=== PATIENT | male | born 1970 | race Caucasian/White ===

== ENCOUNTER 2017-01-15 02:06 | Inpatient (IN) | payer MEDICAID, OTHER ==
[~2017-01-15] VITALS: Ht 182.9 cm; Wt 113.0 kg
[~2017-01-15 02:06] MED LIST: OXYC-302 PO; POLY17PO5 PO
[2017-01-15] MEDS ORDERED: FAMOTIDINE 20 MG/2 ML ONE (03:40)
[2017-01-15] MEDS ORDERED: HYDROmorphone 1 MG/ML, 1ML ONE ×5 (03:40→17:17)
[2017-01-15] MEDS ORDERED: ONDANSETRON 2MG/ML, 2ML ONE (03:40)
[2017-01-15] MEDS: HYDROmorphone 1 MG/ML, 1ML IVPush PRN ×2 (03:45→05:28)
[2017-01-15] MEDS ORDERED: BENA1TAB11 PO (03:52)
[2017-01-15] MEDS ORDERED: AMLO10TA2 PO (03:52)
[2017-01-15] MEDS ORDERED: SODIUM CHLORIDE 0.9% 1,000ML IVBOLUS ONE (04:00)
[2017-01-15] MEDS ORDERED: FAMOTIDINE 20 MG/2 ML IVP ONE (04:00)
[2017-01-15] MEDS ORDERED: ONDANSETRON 2MG/ML, 2ML IVPush ONE (04:00)
[2017-01-15] MEDS ORDERED: SODIUM CHLORIDE FLUSH 10ML SYR IVF ONE (04:00)
[2017-01-15 04:13] LABS: ASPARTATE AMINO TRANSFERASE 21 U/L (15-37); BLOOD UREA NITROGEN 18 mg/dL (7-18)
[2017-01-15] MEDS ORDERED: OMNIPAQUE 350 MG/ML, 100ML BOTTLE ONE (04:36)
[2017-01-15] MEDS ORDERED: D5%-0.45NACL+KCL 20MEQ 1,000 ML IV SCH (05:00)
[2017-01-15] MEDS ORDERED: LABETALOL 5MG/ML, 20ML IV PRN (06:00)
[2017-01-15] MEDS: D5%-0.45NACL+KCL 20MEQ 1,000 ML IV SCH ×3 (08:00→23:01)
[2017-01-15 08:19] VITALS: BP 141/92
[2017-01-15] MEDS: HYDROmorphone 2 MG/ML, 1ML IV PRN ×4 (08:49→21:15)
[2017-01-15] MEDS: AMLODIPINE 5 MG TABLET PO SCH (08:59)
[2017-01-15] MEDS: BENAZEPRIL 20 MG TABLET PO SCH (08:59)
[2017-01-15] MEDS: HYDROCHLOROTHIAZIDE 25 MG TABLET PO SCH (08:59)
[2017-01-15] MEDS ORDERED: PHENOL THROAT SPRAY BOTTLE MM PRN (11:00)
[2017-01-15] MEDS: ONDANSETRON 2MG/ML, 2ML IVP PRN ×2 (11:09→13:13)
[2017-01-15 12:35] VITALS: BP 130/86
[2017-01-15 12:35] LABS: HEMOGLOBIN 17.2 g/dL (13.7-18.0)
[2017-01-15 12:46] LABS: BLOOD UREA NITROGEN 15 mg/dL (7-18)
[2017-01-15 20:43] VITALS: BP 137/81
[2017-01-16] MEDS: HYDROmorphone 2 MG/ML, 1ML IV PRN ×5 (00:50→18:47)
[2017-01-16 04:49] VITALS: BP 150/95
[2017-01-16] MEDS: D5%-0.45NACL+KCL 20MEQ 1,000 ML IV SCH ×3 (05:39→20:00)
[2017-01-16 06:02] LABS: BLOOD UREA NITROGEN 12 mg/dL (7-18)
[2017-01-16 06:35] VITALS: BP 137/97
[2017-01-16] MEDS: BENAZEPRIL 20 MG TABLET PO SCH ×2 (09:00→10:51)
[2017-01-16] MEDS ORDERED: SODIUM CHLORIDE NASAL SPRAY 45ML BOTTLE NAS PRN (09:30)
[2017-01-16] MEDS: OXYMETAZOLINE NASAL SPRAY 0.05%, 15ML NAS SCH ×2 (09:30→21:00)
[2017-01-16] MEDS: HYDROCHLOROTHIAZIDE 25 MG TABLET PO SCH (10:49)
[2017-01-16] MEDS: AMLODIPINE 5 MG TABLET PO SCH (10:49)
[2017-01-16 13:11] VITALS: BP 142/88
[2017-01-16 19:35] VITALS: BP 137/97
[2017-01-17 01:45] VITALS: BP 141/90
[2017-01-17] MEDS: D5%-0.45NACL+KCL 20MEQ 1,000 ML IV SCH ×4 (01:54→22:40)
[2017-01-17 06:09] LABS: BLOOD UREA NITROGEN 7 mg/dL (7-18)
[2017-01-17 07:03] VITALS: BP 133/94
[2017-01-17] MEDS: HYDROCHLOROTHIAZIDE 25 MG TABLET PO SCH (08:16)
[2017-01-17] MEDS: AMLODIPINE 5 MG TABLET PO SCH (08:16)
[2017-01-17] MEDS: OXYMETAZOLINE NASAL SPRAY 0.05%, 15ML NAS SCH ×2 (08:17→21:00)
[2017-01-17] MEDS: BENAZEPRIL 20 MG TABLET PO SCH (08:17)
[2017-01-17 12:30] VITALS: BP 142/86
[2017-01-17 19:20] VITALS: BP 138/90
[2017-01-18 02:58] VITALS: BP 147/91
[2017-01-18] MEDS: D5%-0.45NACL+KCL 20MEQ 1,000 ML IV SCH (04:08)
[2017-01-18 07:55] VITALS: BP 133/93
[2017-01-18] MEDS: BENAZEPRIL 20 MG TABLET PO SCH (09:00)
[2017-01-18] MEDS: OXYMETAZOLINE NASAL SPRAY 0.05%, 15ML NAS SCH (09:00)
[2017-01-18] MEDS: HYDROCHLOROTHIAZIDE 25 MG TABLET PO SCH (09:33)
[2017-01-18] MEDS: AMLODIPINE 5 MG TABLET PO SCH (09:34)
[2017-01-18 13:23] VITALS: BP 134/92
== END 2017-01-18 15:58 | disposition home or self-care (01) | DRG 390 ==
LOC: ED 05:12 → EDIP 05:13 → ED 05:26 → 4NOR 05:57 → DCLOUNGE 01-18 15:33
PROVIDERS: ADMIT Family Medicine; ATTEND Family Medicine
PROC: 0T9B70Z Drainage of Bladder with Drainage Device, Via Natural or Artificial Opening (ICD-10-PCS; principal; 2017-01-15)
PROC: 0D9670Z Drainage of Stomach with Drainage Device, Via Natural or Artificial Opening (ICD-10-PCS; 2017-01-15)
DX: K56.5 Intestinal adhesions [bands] with obstruction (postinfection) (principal); I10 Essential (primary) hypertension; R73.9 Hyperglycemia, unspecified; K21.9 Gastro-esophageal reflux disease without esophagitis; Z72.0 Tobacco use; Z88.5 Allergy status to narcotic agent; Z90.49 Acquired absence of other specified parts of digestive tract; Z79.899 Other long term (current) drug therapy; Z83.3 Family history of diabetes mellitus
CPT/HCPCS: 36415; 74000; 74177; 80048; 80053; 81003; 83036; 83690; 85025; 85610; 96361; 96374; 96375; 96376; J1170; J2405; Q9967; J3480; J7030; S0028

== ENCOUNTER 2017-10-05 19:34 | Emergency (ER) | payer MEDICAID ==
[~2017-10-05] VITALS: Ht 182.9 cm; Wt 117.4 kg
[~2017-10-05 19:34] MED LIST changes: +AMLO10TA2 PO; +BENA1TAB11 PO
[2017-10-05 19:37] VITALS: BP 144/79
[2017-10-05] MEDS ORDERED: OXYcodone/APAP 5/325MG TABLET PO ONE (20:00)
[2017-10-05] MEDS ORDERED: KETOROLAC 60 MG/2 ML IM ONE (20:00)
[2017-10-05] MEDS ORDERED: KETOROLAC 30 MG/1 ML ONE (20:02)
[2017-10-05] MEDS ORDERED: OXYcodone/APAP 5/325MG TABLET ONE (20:02)
[2017-10-05 20:04] LABS: HEMATOCRIT 48.5 % (39.2-51.8); HEMOGLOBIN 16.7 g/dL (13.7-18.0)
== END 2017-10-05 21:34 | disposition home or self-care (01) ==
LOC: ED 21:28
DX: M13.171 Monoarthritis, not elsewhere classified, right ankle and foot (principal); M10.471 Other secondary gout, right ankle and foot; I10 Essential (primary) hypertension; Z88.5 Allergy status to narcotic agent; Z90.49 Acquired absence of other specified parts of digestive tract
CPT/HCPCS: 36415; 73610; 73630; 84550; 85025; 85651; 93971; 96372; 99285; J1885

== ENCOUNTER 2020-04-21 21:01 | Inpatient (IN) | payer MEDICAID ==
[~2020-04-21] VITALS: Ht 182.9 cm; Wt 132.0 kg
[~2020-04-21 21:01] MED LIST changes: -AMLO10TA2 PO; +AMLO10TA8 PO
[2020-04-21 21:42] LABS: BASOPHILS # (AUTO) 0.04 x10^3/uL (0-0.1); BASOPHILS % (AUTO) 0 % (0-1); EOSINOPHILS % (AUTO) 0 % (1-7); LYMPHOCYTES # (AUTO) 1.33 x10^3/uL (1-3.4); LYMPHOCYTES % (AUTO) 9 % (22-44); MD NO; MEAN CORPUSCULAR HEMOGLOBIN 31.7 pg (27.5-34.5); MEAN CORPUSCULAR HGB CONC 33.1 g/dL (33.2-36.2); MEAN CORPUSCULAR VOLUME 95.7 fL (81-97); MEAN PLATELET VOLUME 7.5 fL (7.4-10.4); MONOCYTES # (AUTO) 0.91 x10^3/uL (0.2-0.8); MONOCYTES % (AUTO) 6 % (2-9); NEUTROPHILS # (AUTO) 12.53 x10^3/uL (1.8-6.8); NEUTROPHILS % (AUTO) 85 % (42-75); PLATELET COUNT 257 x10^3/uL (130-400); RED BLOOD COUNT 5.94 x10^6/uL (4.38-5.82); RED CELL DISTRIBUTION WIDTH 14.9 % (9.4-14.8)
[2020-04-21 21:50] LABS: ALANINE AMINOTRANSFERASE 30 U/L (12-78); ALBUMIN 4.2 g/dL (3.4-5.0); ANION GAP 6 mmol/L (5-15); CALCIUM 9.5 mg/dL (8.5-10.1); CHLORIDE 103 mmol/L (98-107)
[2020-04-21 21:53] LABS: ALKALINE PHOSPHATASE 68 U/L (45-117); BILIRUBIN,TOTAL 0.6 mg/dL (0.2-1.0); CREATININE 1.39 mg/dL (0.7-1.3); TOTAL PROTEIN 9.2 g/dL (6.4-8.2)
[2020-04-21] MEDS ORDERED: HYDROmorphone 1 MG/ML, 1ML INJ ONE (22:17)
[2020-04-21] MEDS ORDERED: ONDANSETRON 2MG/ML, 2ML ONE (22:17)
[2020-04-21] MEDS ORDERED: HYDROmorphone 2 MG/ML, 1ML IVPush PRN (22:30)
[2020-04-21] MEDS ORDERED: ONDANSETRON 2MG/ML, 2ML IVPush ONE (22:30)
--- NOTE | 2020-04-21 22:30 | NUR ---
PT TO IMAGING.
[2020-04-21] MEDS ORDERED: OMNIPAQUE 350 MG/ML, 150 ML BOTTLE ONE (22:42)
--- NOTE | 2020-04-21 22:47 | NUR ---
SUMMARY NOTE: THIS PT HAS A HX OF BOWEL OBSTRUCTION, APPROX 4 YEARS AGO. HE'S HAD A HERNIA REPAIR. PT STATES HIS LAST BM WAS TODAY. PT MEDICATED TO DEC, AND WENT TO CT.
--- NOTE | 2020-04-21 23:07 | NUR ---
PT SITTING IN BED, PROVIDED WITH BLANKET, STATES RELEIF FROM PAIN MEDS. CHART UP FOR RECHECK, PT UPDATED ON POC.
[2020-04-21 23:12] LABS: MICROSCOPIC INDICATED
[2020-04-21] MEDS ORDERED: LOSA25TA25 PO (23:19)
--- NOTE | 2020-04-21 23:19 | NUR ---
MED REC COMPLETE TO THE BEST OF PT'S ABILITY. PT UNSURE IF HE TAKES ALL THE LISTED BP MEDS.
[2020-04-22] MEDS ORDERED: SODIUM CHLORIDE 0.9% 1,000ML IVBOLUS ONE
[2020-04-22] MEDS ORDERED: LIDOCAINE 4% TOPICAL SOLUTION 50 ML TP ONE
--- NOTE | 2020-04-22 00:53 | NUR ---
REPORT GIVEN TO DEEPALI, TARAS RN.
--- NOTE | 2020-04-22 00:55 | NUR ---
LATE ENTRY FOR 0030: NG TUBE IN PLACE. PT TOLERATED WELL. TAMMI RN AT BEDSIDE TO WITNESS AND CONFIRM PLACEMENT. PT PREMEDICATED WITH DOSE 2 OF 2 OF 0.5MG OF DILAUDID FROM SAME VIAL THE FIRST DOSE WAS PULLED UP FROM.
[2020-04-22] MEDS ORDERED: HYDROmorphone 1 MG/ML, 1ML INJ IV ONE (01:00)
[2020-04-22] MEDS ORDERED: LABETALOL 5MG/ML, 20ML IVPush PRN (01:00)
[2020-04-22] MEDS ORDERED: ONDANSETRON 2MG/ML, 2ML IVPush PRN (01:00)
[2020-04-22] MEDS ORDERED: ENALAPRILAT 1.25 MG/ML, 2ML IVPush PRN (01:00)
[2020-04-22] MEDS ORDERED: hydrALAzine 20 MG/ML, 1ML IVPush PRN (01:00)
[2020-04-22 01:37] VITALS: BP 134/84
[2020-04-22 01:43] VITALS: BP 134/84
[2020-04-22] MEDS: LACTATED RINGERS 1,000 ML IV SCH ×5 (02:19→21:42)
[2020-04-22] MEDS: ENOXAPARIN 40 MG/0.4 ML SQ SCH (02:19)
[2020-04-22] MEDS: HYDROmorphone 2 MG/ML, 1ML IVPush PRN ×4 (03:58→15:40)
[2020-04-22 07:35] VITALS: BP 152/94
[2020-04-22] MEDS: PANTOPRAZOLE 40 MG IV IVPush SCH (08:29)
[2020-04-22 08:50] LABS: BASOPHILS # (AUTO) 0.03 x10^3/uL (0-0.1); BASOPHILS % (AUTO) 0 % (0-1); EOSINOPHILS # (AUTO) 0.02 x10^3/uL (0-0.4); EOSINOPHILS % (AUTO) 0 % (1-7); LYMPHOCYTES # (AUTO) 1.29 x10^3/uL (1-3.4); LYMPHOCYTES % (AUTO) 12 % (22-44); MD NO; MEAN CORPUSCULAR HEMOGLOBIN 32.4 pg (27.5-34.5); MEAN CORPUSCULAR HGB CONC 33.6 g/dL (33.2-36.2); MEAN CORPUSCULAR VOLUME 96.3 fL (81-97); MEAN PLATELET VOLUME 7.4 fL (7.4-10.4); MONOCYTES # (AUTO) 0.89 x10^3/uL (0.2-0.8); MONOCYTES % (AUTO) 9 % (2-9); NEUTROPHILS # (AUTO) 8.25 x10^3/uL (1.8-6.8); NEUTROPHILS % (AUTO) 79 % (42-75); PLATELET COUNT 195 x10^3/uL (130-400); RED BLOOD COUNT 5.37 x10^6/uL (4.38-5.82); RED CELL DISTRIBUTION WIDTH 14.4 % (9.4-14.8)
[2020-04-22 08:55] LABS: ALBUMIN 3.4 g/dL (3.4-5.0); ANION GAP 5 mmol/L (5-15); CALCIUM 8.6 mg/dL (8.5-10.1); CHLORIDE 104 mmol/L (98-107)
[2020-04-22 09:01] LABS: ALANINE AMINOTRANSFERASE 26 U/L (12-78); ALKALINE PHOSPHATASE 52 U/L (45-117); BILIRUBIN,TOTAL 0.9 mg/dL (0.2-1.0); CREATININE 0.91 mg/dL (0.7-1.3); TOTAL PROTEIN 7.3 g/dL (6.4-8.2)
[2020-04-22] MEDS ORDERED: LOSARTAN 25MG TABLET NG SCH (11:30)
[2020-04-22] MEDS ORDERED: HYDROCHLOROTHIAZIDE 25 MG TABLET NG SCH (11:30)
[2020-04-22] MEDS: AMLODIPINE 10 MG TAB PO SCH (11:50)
[2020-04-22 14:25] VITALS: BP 145/96
[2020-04-22 20:00] VITALS: BP 131/83
[2020-04-23 02:25] VITALS: BP 148/87
[2020-04-23] MEDS: LACTATED RINGERS 1,000 ML IV SCH ×2 (02:50→08:00)
[2020-04-23] MEDS: ENOXAPARIN 40 MG/0.4 ML SQ SCH (03:56)
[2020-04-23 06:18] LABS: ALBUMIN 3.3 g/dL (3.4-5.0); ANION GAP 6 mmol/L (5-15); CALCIUM 8.6 mg/dL (8.5-10.1); CHLORIDE 103 mmol/L (98-107)
[2020-04-23 06:25] LABS: BASOPHILS # (AUTO) 0.02 x10^3/uL (0-0.1); BASOPHILS % (AUTO) 0 % (0-1); EOSINOPHILS # (AUTO) 0.07 x10^3/uL (0-0.4); EOSINOPHILS % (AUTO) 1 % (1-7); LYMPHOCYTES # (AUTO) 1.14 x10^3/uL (1-3.4); LYMPHOCYTES % (AUTO) 14 % (22-44); MD NO; MEAN CORPUSCULAR HEMOGLOBIN 31.9 pg (27.5-34.5); MEAN CORPUSCULAR VOLUME 96.7 fL (81-97); MEAN PLATELET VOLUME 7.8 fL (7.4-10.4); MONOCYTES # (AUTO) 0.63 x10^3/uL (0.2-0.8); MONOCYTES % (AUTO) 8 % (2-9); NEUTROPHILS # (AUTO) 6.43 x10^3/uL (1.8-6.8); NEUTROPHILS % (AUTO) 78 % (42-75); PLATELET COUNT 183 x10^3/uL (130-400); RED BLOOD COUNT 5.25 x10^6/uL (4.38-5.82); RED CELL DISTRIBUTION WIDTH 14.3 % (9.4-14.8)
[2020-04-23 06:26] LABS: ALANINE AMINOTRANSFERASE 26 U/L (12-78); ALKALINE PHOSPHATASE 51 U/L (45-117); BILIRUBIN,TOTAL 0.9 mg/dL (0.2-1.0); CREATININE 0.74 mg/dL (0.7-1.3); TOTAL PROTEIN 7.2 g/dL (6.4-8.2)
[2020-04-23] MEDS: PANTOPRAZOLE 40 MG IV IVPush SCH (08:18)
[2020-04-23] MEDS: AMLODIPINE 10 MG TAB PO SCH (08:19)
[2020-04-23 08:32] VITALS: BP 148/85
[2020-04-23] MEDS ORDERED: LOSARTAN 25MG TABLET PO SCH (09:00)
[2020-04-23] MEDS ORDERED: HYDROCHLOROTHIAZIDE 25 MG TABLET PO SCH (09:00)
== END 2020-04-23 13:00 | disposition home or self-care (01) | DRG 683 ==
LOC: ED 23:01 → EDIP 23:46 → 3N 04-22 01:17 → DCLOUNGE 04-23 12:53
PROVIDERS: ADMIT Hospitalist; ATTEND Hospitalist
DX: N17.9 Acute kidney failure, unspecified (principal); K56.600 Partial intestinal obstruction, unspecified as to cause; D72.829 Elevated white blood cell count, unspecified; E66.01 Morbid (severe) obesity due to excess calories; I10 Essential (primary) hypertension; K21.9 Gastro-esophageal reflux disease without esophagitis; Z90.49 Acquired absence of other specified parts of digestive tract; Z68.39 Body mass index [BMI] 39.0-39.9, adult
CPT/HCPCS: 36415; 74021; 74177; 80053; 81001; 83690; 85025; 96374; 96375; 96376; 99285; G0378; J1170; J1650; J2405; Q9967; C9113; J7030; J7120

== ENCOUNTER 2020-06-08 07:31 | Inpatient (IN) | payer MEDICAID ==
[~2020-06-08] VITALS: Ht 182.9 cm; Wt 126.7 kg
[~2020-06-08 07:31] MED LIST changes: +LOSA25TA25 PO
[2020-06-08] MEDS ORDERED: DILTIAZEM 5 MG/ML, 5ML IV ONE (08:00)
[2020-06-08] MEDS ORDERED: SODIUM CHLORIDE FLUSH 10ML SYR IVF ONE (08:00)
[2020-06-08] MEDS ORDERED: DILTIAZEM 5 MG/ML, 5ML ONE (08:11)
[2020-06-08 08:18] LABS: BASOPHILS # (AUTO) 0.02 x10^3/uL (0-0.1); BASOPHILS % (AUTO) 0 % (0-1); EOSINOPHILS # (AUTO) 0.04 x10^3/uL (0-0.4); EOSINOPHILS % (AUTO) 1 % (1-7); LYMPHOCYTES % (AUTO) 20 % (22-44); MD NO; MEAN CORPUSCULAR HEMOGLOBIN 31.7 pg (27.5-34.5); MEAN CORPUSCULAR HGB CONC 32.4 g/dL (33.2-36.2); MEAN PLATELET VOLUME 7.3 fL (7.4-10.4); MONOCYTES # (AUTO) 0.64 x10^3/uL (0.2-0.8); MONOCYTES % (AUTO) 8 % (2-9); NEUTROPHILS % (AUTO) 71 % (42-75); PLATELET COUNT 218 x10^3/uL (130-400); RED CELL DISTRIBUTION WIDTH 15.2 % (9.4-14.8)
[2020-06-08 08:30] LABS: ANION GAP 9 mmol/L (5-15); CHLORIDE 103 mmol/L (98-107)
[2020-06-08 08:35] LABS: FREE T4 (FREE THYROXINE) 1.52 ng/dL (0.76-1.46); TROPONIN I < 0.015 ng/mL (0.000-0.045)
[2020-06-08] MEDS: DILTIAZEM 125 MG in SODIUM CHLORIDE 0.9% 100 ML IV SCH ×2 (09:03→19:30)
--- NOTE | 2020-06-08 09:04 | NUR ---
PT UPRIGHT ON GURNEY AWAKE & COMFORTABLE, RESPONDS APPROP TO STAFF, NAD, COMFORT MEASURES PROVIDED, AT BS, CALL LIGHT WITHIN REACH.
[2020-06-08] MEDS ORDERED: METOPROLOL 1 MG/ML, 5ML IVPush ONE (09:30)
[2020-06-08] MEDS ORDERED: ENOXAPARIN 120MG/0.8ML SQ ONE (09:30)
[2020-06-08] MEDS ORDERED: METOPROLOL 1 MG/ML, 5ML ONE (09:36)
--- NOTE | 2020-06-08 09:52 | NUR ---
ERP notified of pt status post medication administration. No orders at this time. Pt sts no complaint at this time.
[2020-06-08] MEDS ORDERED: ATEN1TAB3 PO (10:06)
[2020-06-08] MEDS ORDERED: SODIUM CHLORIDE FLUSH 10ML SYR IVF PRN (10:30)
--- NOTE | 2020-06-08 11:07 | NUR ---
Pt resting in [facility], significant other bedside, no needs expressed at this time. Will continue to monitor.
--- NOTE | 2020-06-08 11:58 | NUR ---
Pt to be admitted to [facility], room 508-02. Report called to Moira MOON.
[2020-06-08 12:42] VITALS: BP 132/98
[2020-06-08] MEDS ORDERED: DOCUSATE 100 MG CAPSULE PO PRN (13:00)
[2020-06-08] MEDS ORDERED: POLYETHYLENE GLYCOL 17 GM PACKET PO PRN (13:00)
[2020-06-08] MEDS ORDERED: IBUPROFEN 600 MG TABLET PO PRN (13:00)
[2020-06-08] MEDS ORDERED: BISACODYL 10 MG SUPP PR PRN (13:00)
[2020-06-08] MEDS ORDERED: LABETALOL 5MG/ML, 20ML IVPush PRN (13:00)
[2020-06-08] MEDS ORDERED: ACETAMINOPHEN 325 MG TABLET PO PRN (13:00)
[2020-06-08] MEDS ORDERED: hydrALAzine 20 MG/ML, 1ML IVPush PRN (13:00)
[2020-06-08] MEDS: METOPROLOL SUCCINATE 50 MG TAB.ER.24H PO SCH (14:10)
[2020-06-08 18:45] VITALS: BP 110/77
[2020-06-08] MEDS: APIXABAN 5 MG TABLET PO SCH (21:04)
[2020-06-09] VITALS: BP 112/80
[2020-06-09] MEDS: METOPROLOL SUCCINATE 50 MG TAB.ER.24H PO SCH (06:13)
[2020-06-09] MEDS: DILTIAZEM 125 MG in SODIUM CHLORIDE 0.9% 100 ML IV SCH ×2 (06:14→20:52)
[2020-06-09 07:45] VITALS: BP 128/84
[2020-06-09] MEDS: APIXABAN 5 MG TABLET PO SCH ×2 (08:26→20:56)
[2020-06-09] MEDS: CHLORTHALIDONE 25 MG TABLET PO SCH (08:27)
[2020-06-09] MEDS: LOSARTAN 25MG TABLET PO SCH (08:27)
[2020-06-09] MEDS ORDERED: POTASSIUM CHLORIDE 20 MEQ TAB.ER.PRT PO ONE (09:00)
[2020-06-09] MEDS ORDERED: AMLODIPINE 10 MG TAB PO SCH (09:00)
[2020-06-09] MEDS ORDERED: METOPROLOL SUCCINATE 25 MG TAB.ER.24H PO SCH (09:00)
[2020-06-09] MEDS ORDERED: DIGOXIN 0.25 MG/ML, 2ML IVPush ONE (13:30)
[2020-06-09 13:36] VITALS: BP 125/83
[2020-06-09] MEDS ORDERED: METOPROLOL SUCCINATE 25 MG TAB.ER.24H PO ONE (15:30)
[2020-06-09] MEDS ORDERED: DIGOXIN 0.25 MG/ML, 2ML IVPush SCH (17:00)
[2020-06-09] MEDS: DIGOXIN 0.25 MG/ML, 2ML IVPush SCH ×2 (17:34→22:53)
[2020-06-09 21:32] VITALS: BP 110/75
[2020-06-10 02:50] VITALS: BP 121/82
[2020-06-10] MEDS ORDERED: METOPROLOL SUCCINATE 50 MG TAB.ER.24H PO SCH ×2 (06:00)
[2020-06-10] MEDS ORDERED: SODIUM CHLORIDE 0.9% 1,000 ML IV SCH (06:00)
[2020-06-10] MEDS ORDERED: POTASSIUM CHLORIDE 20 MEQ TAB.ER.PRT PO ONE (07:30)
[2020-06-10] MEDS: DILTIAZEM 125 MG in SODIUM CHLORIDE 0.9% 100 ML IV SCH (08:00)
[2020-06-10 08:43] VITALS: BP 124/85
[2020-06-10] MEDS: LOSARTAN 25MG TABLET PO SCH (09:00)
[2020-06-10] MEDS: CHLORTHALIDONE 25 MG TABLET PO SCH (09:01)
[2020-06-10] MEDS: APIXABAN 5 MG TABLET PO SCH (09:01)
[2020-06-10] MEDS ORDERED: PROPOFOL 10 MG/ML, 20ML ONE ×2 (10:01)
[2020-06-10] MEDS ORDERED: CHLO25TA PO (11:07)
[2020-06-10] MEDS ORDERED: METO-95 PO (11:07)
[2020-06-10] MEDS ORDERED: APIX5TAB PO (11:07)
[2020-06-11] MEDS ORDERED: METOPROLOL SUCCINATE 100 MG TAB.ER.24H PO SCH (06:00)
== END 2020-06-10 13:04 | disposition home or self-care (01) | DRG 309 ==
LOC: ED 08:23 → EDIP 10:22 → 5SO 12:29 → DCLOUNGE 06-10 12:53
PROVIDERS: ADMIT Family Medicine; ATTEND Family Medicine
PROC: B24BZZ4 Ultrasonography of Heart with Aorta, Transesophageal (ICD-10-PCS; 2020-06-10)
PROC: 5A2204Z Restoration of Cardiac Rhythm, Single (ICD-10-PCS; principal; 2020-06-10 07:30)
DX: I48.19 Other persistent atrial fibrillation (principal); D68.69 Other thrombophilia; E66.9 Obesity, unspecified; E87.6 Hypokalemia; I10 Essential (primary) hypertension; F17.200 Nicotine dependence, unspecified, uncomplicated; I42.9 Cardiomyopathy, unspecified; G47.33 Obstructive sleep apnea (adult) (pediatric); M19.90 Unspecified osteoarthritis, unspecified site; Z03.818 Encounter for observation for suspected exposure to other biological agents ruled out; Z82.49 Family history of ischemic heart disease and other diseases of the circulatory system; Z83.3 Family history of diabetes mellitus; Z68.37 Body mass index [BMI] 37.0-37.9, adult; Z79.01 Long term (current) use of anticoagulants; Z88.5 Allergy status to narcotic agent; Z72.89 Other problems related to lifestyle
CPT/HCPCS: 36415; 71045; 80048; 82040; 83735; 83880; 84439; 84443; 84484; 85025; 87635; 92960; 93005; 93306; 93312; 93321; 93325; G0378; J1650; J2704; J1160

== ENCOUNTER 2020-11-03 12:18 | Outpatient (CLI) | payer MEDICAID ==
[~2020-11-03 12:18] MED LIST changes: +AMLO-211 PO; -AMLO10TA8 PO; +APIX5TAB PO; +ATEN1TAB3 PO; +CHLO25TA PO; +METO-95 PO
== END 2020-11-03 23:59 | disposition home or self-care (01) ==
LOC: CVU 12:18
PROVIDERS: ATTEND Internal Medicine Cardiovascular Disease
DX: I11.9 Hypertensive heart disease without heart failure (principal); I42.9 Cardiomyopathy, unspecified
CPT/HCPCS: 93306

== ENCOUNTER 2020-11-22 06:04 | Day surgery (SDC) | payer MEDICAID ==
[~2020-11-22] VITALS: Ht 182.9 cm; Wt 130.4 kg
[~2020-11-22 06:04] MED LIST changes: -OXYC-302 PO; +OXYC1TAB14 PO
[2020-11-22] MEDS ORDERED: METO-95 PO (06:34)
[2020-11-22] MEDS ORDERED: LOSA1TAB22 PO (06:34)
[2020-11-22] MEDS ORDERED: AMLO-150 PO (06:34)
[2020-11-22] MEDS ORDERED: Atenolol PO (06:35)
[2020-11-22 06:53] VITALS: BP 93/72
[2020-11-22 07:11] LABS: ANION GAP 8 mmol/L (5-15); CALCIUM 8.8 mg/dL (8.5-10.1); CHLORIDE 104 mmol/L (98-107); CREATININE 1.05 mg/dL (0.7-1.3)
[2020-11-22] MEDS ORDERED: POTA20TA91 PO (07:50)
[2020-11-22] MEDS ORDERED: FLEC100T PO (07:50)
[2020-11-22] MEDS ORDERED: PROPOFOL 10 MG/ML, 20ML ONE (08:01)
== END 2020-11-22 09:13 | disposition home or self-care (01) ==
LOC: CACL 06:04
PROVIDERS: ATTEND Internal Medicine Cardiovascular Disease
DX: I48.0 Paroxysmal atrial fibrillation (principal); I10 Essential (primary) hypertension; I42.9 Cardiomyopathy, unspecified; G47.39 Other sleep apnea; F17.220 Nicotine dependence, chewing tobacco, uncomplicated; Z79.01 Long term (current) use of anticoagulants; Z79.899 Other long term (current) drug therapy; Z88.8 Allergy status to other drugs, medicaments and biological substances; Z98.890 Other specified postprocedural states; Z72.89 Other problems related to lifestyle; Z82.49 Family history of ischemic heart disease and other diseases of the circulatory system
CPT/HCPCS: 36415; 80048; 92960; 93005; J2704

== ENCOUNTER → 2020-11-26 | Outpatient (CLI) | payer MEDICAID ==
[~2020-11-26] MED LIST changes: +AMLO-150 PO; +Atenolol PO; +FLEC100T PO; +LOSA1TAB22 PO; +POTA20TA91 PO; +REGADENOSON 0.4 MG/5 ML SYRINGE ONE
== END | disposition home or self-care (01) ==
LOC: CFH 12:36
PROVIDERS: ATTEND Physician Assistant Medical
DX: I42.9 Cardiomyopathy, unspecified (principal); I48.0 Paroxysmal atrial fibrillation
CPT/HCPCS: 78452; 93017; A9502; J2785